=== PATIENT | male | born 1975 | race Two or more races ===

== ENCOUNTER 2022-10-24 18:01 | Emergency (ER) | payer OTHER ==
[~2022-10-24] VITALS: Ht 175.3 cm; Wt 77.1 kg
[2022-10-24] MEDS ORDERED: WELLBUTRIN XL150 M1 (18:16)
[2022-10-24] MEDS ORDERED: PEPCID AC20 MG PO (22:01)
[2022-10-24] MEDS ORDERED: INTESTINEX680 M1 PO (22:01)
[2022-10-24] MEDS ORDERED: METRONIDAZOLE500 MG PO (22:01)
== END 2022-10-24 22:37 | disposition home or self-care (01) ==
LOC: ER 18:01
DX: K52.9 Noninfective gastroenteritis and colitis, unspecified (principal)